=== PATIENT | male | born 1985 | race Caucasian/White ===

== ENCOUNTER 2020-07-03 11:19 | Emergency (ER) | payer OTHER ==
[~2020-07-03] VITALS: Ht 170.2 cm; Wt 70.3 kg
[2020-07-03] MEDS ORDERED: CLONAZEPAM0.5 M1 PO (11:42)
[2020-07-03] MEDS ORDERED: EFFEXOR XR150 MG PO (11:42)
[2020-07-03] MEDS ORDERED: NASAL MIST126 ML (11:43)
== END 2020-07-03 16:00 | disposition home or self-care (01) ==
LOC: ER 11:19
DX: R00.2 Palpitations (principal); R06.02 Shortness of breath; F41.8 Other specified anxiety disorders; Z03.818 Encounter for observation for suspected exposure to other biological agents ruled out

== ENCOUNTER 2021-04-07 23:52 | Emergency (ER) | payer OTHER ==
[~2021-04-07] VITALS: Ht 170.2 cm; Wt 72.6 kg
[~2021-04-07 23:52] MED LIST: CLONAZEPAM0.5 M1 PO; EFFEXOR XR150 MG PO; NASAL MIST126 ML
[2021-04-08] MEDS ORDERED: CLONAZEPAM0.5 M1 PO (01:21)
== END 2021-04-08 01:29 | disposition home or self-care (01) ==
LOC: ER 23:52
DX: F41.8 Other specified anxiety disorders (principal)

== ENCOUNTER 2021-04-24 20:46 | Emergency (ER) | payer OTHER ==
[~2021-04-24] VITALS: Ht 170.2 cm; Wt 72.6 kg
[2021-04-24] MEDS ORDERED: CLONAZEPAM1 MG PO (22:16)
== END 2021-04-24 22:33 | disposition home or self-care (01) ==
LOC: ER 20:46
DX: F41.8 Other specified anxiety disorders (principal)